=== PATIENT | male | born 1975 | race American Indian/Alaskan Native ===

== ENCOUNTER 2022-09-21 06:38 | Emergency (ER) | payer MEDICAID ==
[~2022-09-21] VITALS: Ht 170.2 cm; Wt 93.0 kg
[2022-09-21 06:51] VITALS: BP_SYST 238
[2022-09-21] MEDS ORDERED: LORazepam 2 MG/ML VIAL IVP ONE (07:15)
[2022-09-21] MEDS ORDERED: NACL 0.9% 1,000 ML IV ONE (07:15)
[2022-09-21] MEDS ORDERED: VIS25 PO (08:02)
[2022-09-21 08:30] VITALS: BP_SYST 184
== END 2022-09-21 08:30 | disposition home or self-care (01) ==
LOC: SED 06:38
DX: R07.89 Other chest pain (principal); F41.9 Anxiety disorder, unspecified; R42 Dizziness and giddiness; I10 Essential (primary) hypertension; F15.90 Other stimulant use, unspecified, uncomplicated; Z79.899 Other long term (current) drug therapy
CPT/HCPCS: 99285; 96374; 96361; J2060; J7030